=== PATIENT | female | born 1995 | race Caucasian/White ===

== ENCOUNTER 2020-07-30 11:32 | Emergency (ER) | payer OTHER ==
[~2020-07-30] VITALS: Ht 165.1 cm; Wt 42.3 kg
[2020-07-30] MEDS ORDERED: FAMOTIDINE 10 MG/ML 2 ML VIAL IVP ONE (12:30)
[2020-07-30] MEDS ORDERED: PB/HYOSCY/ATR/SCOP/LIDO/MAALOX 55 ML BOTTLE PO ONE (12:30)
[2020-07-30] MEDS ORDERED: ONDANSETRON HCL 4 MG/2 ML VIAL IVP ONE (12:30)
[2020-07-30] MEDS ORDERED: SODIUM CHLORIDE 0.9% 1,000 ML IV ONE (12:30)
[2020-07-30 12:48] LABS: BASOPHILS % (AUTO) 0.2 % (0.0-2.0); EOSINOPHILS % (AUTO) 0.3 % (1.0-6.0); HEMATOCRIT 42.1 % (36-46); HEMOGLOBIN 14.5 g/dL (12.0-16.0); LYMPHOCYTES # (AUTO) 1.6 K/uL (1.0-4.8); LYMPHOCYTES % (AUTO) 34.3 % (22.0-44.0); MEAN CORPUSCULAR HEMOGLOBIN 29.7 pg (26.0-34.0); MEAN CORPUSCULAR HGB CONC 34.4 G/dL (31.0-37.0); MEAN CORPUSCULAR VOLUME 86 fL (80-100); MONOCYTES # (AUTO) 0.3 K/uL (0.1-1.0); MONOCYTES % (AUTO) 6.4 % (2.0-9.0); NEUTROPHILS # (AUTO) 2.7 K/uL (1.8-7.7); NEUTROPHILS % (AUTO) 58.8 % (40.0-70.0); PLATELET COUNT (AUTO) 250 K/uL (150-450); RED BLOOD CELL COUNT(AUTO) 4.87 MIL/uL (4.00-5.20); RED CELL DISTRIBUTION WIDTH 12.1 % (11.5-14.5)
[2020-07-30 12:54] LABS: ANION GAP 7 mmol/L (8-16); CALCIUM, TOTAL 9.5 mg/dL (8.8-10.5); CARBON DIOXIDE 33 mmol/L (22-29); CHLORIDE 102 mmol/L (98-107); CREATININE 0.71 mg/dL (0.60-1.30); GLOMERULAR FILTR. RATE CALC > 60 mL/min (>60); GLUCOSE,RANDOM 82 mg/dL (70-110); POTASSIUM 3.4 mmol/L (3.5-5.1); SODIUM SERUM 142 mmol/L (136-145); UREA NITROGEN, BLOOD 13 mg/dL (7-18)
[2020-07-30 13:13] LABS: ALANINE AMINOTRANSFERASE 19 U/L (12-78); ALBUMIN 4.6 g/dL (3.4-5.0); ALKALINE PHOSPHATASE 48 U/L (46-116); ASPARTATE AMINOTRANSFERASE 14 U/L (15-37); BILIRUBIN,TOTAL 0.7 mg/dL (0.1-1.0); HCG,QUANTITATIVE 1 mIU/mL (0-6); LIPASE 97 U/L (73-393); TOTAL PROTEIN, SERUM 8.2 g/dL (6.4-8.2)
[2020-07-30] MEDS ORDERED: POTASSIUM CHLORIDE 20 MEQ ER TABLET PO ONE (13:30)
[2020-07-30 14:33] VITALS: BP 114/65
== END 2020-07-30 14:50 | disposition home or self-care (01) ==
LOC: EMS 11:36
DX: E87.6 Hypokalemia (principal)
CPT/HCPCS: 80053; 83690; 84702; 85025; 96361; 96374; 96375; 99284; J2405; J3490; J7030

== ENCOUNTER 2020-10-12 08:50 | Emergency (ER) | payer OTHER ==
[~2020-10-12] VITALS: Ht 165.1 cm; Wt 43.2 kg
[2020-10-12 11:45] VITALS: BP 111/69
== END 2020-10-12 11:57 | disposition home or self-care (01) ==
LOC: EMS 08:54
DX: S83.8X2A Sprain of other specified parts of left knee, initial encounter (principal); X50.1XXA Overexertion from prolonged static or awkward postures, initial encounter; Y93.89 Activity, other specified; Y92.89 Other specified places as the place of occurrence of the external cause; Y99.8 Other external cause status
CPT/HCPCS: 93971; 73562-TC; Z7502

== ENCOUNTER 2023-10-11 19:37 | Emergency (ER) | payer MEDICAID, OTHER ==
[~2023-10-11] VITALS: Ht 154.9 cm; Wt 45.5 kg
[2023-10-11 23:02] VITALS: BP 127/70; PULSE 71; RESP 15; TEMP 97.3
[2023-10-11] MEDS ORDERED: DIPH25CA85 PO (23:09)
[2023-10-11] MEDS ORDERED: FAMO20 PO (23:09)
[2023-10-11] MEDS ORDERED: DEXA4 PO (23:09)
== END 2023-10-11 23:35 | disposition home or self-care (01) ==
LOC: EMS 19:38
DX: L20.9 Atopic dermatitis, unspecified (principal)
CPT/HCPCS: 99283; Z7502

== ENCOUNTER 2025-05-25 07:07 | Emergency (ER) | payer MEDICAID ==
[~2025-05-25] VITALS: Ht 154.9 cm; Wt 45.5 kg
[~2025-05-25 07:07] MED LIST: DEXA4 PO; DIPH25CA85 PO; FAMO20 PO
[2025-05-25 07:21] VITALS: TEMP 97.7
[2025-05-25] MEDS: LIDOCAINE 1% 10 ML VIAL SQ ONE (07:51)
[2025-05-25] MEDS ORDERED: IBUP-1492 PO (08:40)
[2025-05-25] MEDS ORDERED: AMOX1TAB15 PO (08:40)
[2025-05-25 08:45] VITALS: BP 112/72; PULSE 70; RESP 16; O2SAT 98
== END 2025-05-25 08:46 | disposition home or self-care (01) ==
LOC: EMS 07:14
DX: N75.1 Abscess of Bartholin's gland (principal); Z79.52 Long term (current) use of systemic steroids
CPT/HCPCS: 99284; 56420; J3490

== ENCOUNTER 2025-05-27 09:08 | Emergency (ER) | payer MEDICAID ==
[~2025-05-27] VITALS: Ht 154.9 cm; Wt 45.5 kg
[~2025-05-27 09:08] MED LIST changes: +AMOX1TAB15 PO; +IBUP-1492 PO
[2025-05-27 09:12] VITALS: BP 124/85; PULSE 94; RESP 18; TEMP 98; O2SAT 99
[2025-05-27] MEDS: LIDOCAINE 1% 10 ML VIAL SQ ONE (09:39)
== END 2025-05-27 10:18 | disposition home or self-care (01) ==
LOC: EMS 09:12
DX: N75.1 Abscess of Bartholin's gland (principal); Z79.899 Other long term (current) drug therapy
CPT/HCPCS: 99284; 56420; J3490

== ENCOUNTER 2025-05-28 15:15 | Emergency (ER) | payer MEDICAID ==
[~2025-05-28] VITALS: Ht 154.9 cm; Wt 45.5 kg
[~2025-05-28 15:15] MED LIST changes: -DEXA4 PO; -DIPH25CA85 PO; -FAMO20 PO; -IBUP-1492 PO
[2025-05-28 15:19] VITALS: TEMP 98.6
[2025-05-28 18:57] VITALS: BP 123/85; PULSE 86; RESP 16; O2SAT 100
== END 2025-05-28 19:48 | disposition home or self-care (01) ==
LOC: EMS 15:25
DX: N75.1 Abscess of Bartholin's gland (principal); Z79.899 Other long term (current) drug therapy
CPT/HCPCS: 99282; Z7502

== ENCOUNTER 2025-06-06 20:10 | Emergency (ER) | payer MEDICAID ==
[~2025-06-06] VITALS: Ht 154.9 cm; Wt 45.5 kg
[2025-06-06 20:30] VITALS: TEMP 98.2
[2025-06-06] MEDS ORDERED: SULF1TAB42 PO (22:35)
[2025-06-06] MEDS ORDERED: ACET-2080 PO (22:35)
[2025-06-06] MEDS ORDERED: HYDR-4062 PO ×2 (22:36→22:42)
[2025-06-06] MEDS ORDERED: SULF-261 PO (22:42)
[2025-06-06] MEDS: SULFAMETHOX/TRIMETH DS 800-160 MG/TABLET PO ONE (22:44)
[2025-06-06] MEDS: ACETAMINOPHEN/CODEINE 300-30 MG TABLET PO ONE (22:45)
[2025-06-06 23:00] VITALS: BP 117/68; PULSE 72; RESP 18; O2SAT 99
== END 2025-06-06 23:42 | disposition home or self-care (01) ==
LOC: EMS 20:10
DX: N75.1 Abscess of Bartholin's gland (principal)
CPT/HCPCS: 99283